=== PATIENT | male | born 1960 | race Hispanic/Latino ===

== ENCOUNTER 2018-11-25 10:03 | Day surgery (SDC) | payer MEDICARE ==
[2018-11-24 08:57] VITALS: BP 106/63
[2018-11-25] VITALS (10 sets, daily range): BP systolic 96–116; BP diastolic 56–68
[~2018-11-25] VITALS: Ht 170.2 cm; Wt 68.1 kg
[~2018-11-25 10:03] MED LIST: CART5DRO OP; ERGO500014 PO; FAMO40TA7 PO; LATA7.5D OP; LISI-613 PO; METF500S7 PO; SIMV40TA5 PO; TYL3 PO
--- NOTE | 2018-11-25 10:25 | NUR ---
PATIENT ARRIVED TO DAY SURGERY WITH FAMILY AT HIS SIDE, PATIENT ALERT TO NAME ONLY. SIDE RAILS UP X2 FOR PATIENTS SAFETY, FAMILY ENCOURAGED TO CALL FOR ASSISTANCE IF NEEDED. PATIENT AND FAMILY AGREED TO CALL IF NEEDED. PATIENT HAS A NEPHROSTOMY TUBE TO RIGHT SIDE SIZE 8 FR. DRESSING IS CLEAN AND DRY TO RIGHT LOWER BACK.
--- NOTE | 2018-11-25 12:55 | NUR ---
updated family and patient of delay start time, family and patient verbalized understanding
[2018-11-25] MEDS ORDERED: IODIXANOL 320 MG/ML 100 ML VIAL ONE (15:16)
[2018-11-25] MEDS ORDERED: PROPOFOL 10 MG/ML 20ML VIAL IV ONE (15:20)
[2018-11-25] MEDS ORDERED: LIDOCAINE HCL MPF 1% 5ML VIAL ONE (15:21)
[2018-11-25] MEDS ORDERED: FENTANYL CITRATE PF 50 MCG/1 ML 2ML VIAL ONE (15:31)
[2018-11-25] MEDS ORDERED: SUCCINYLCHOLINE CHLORIDE 20 MG/ML 10 ML VIAL ONE (15:32)
[2018-11-25] MEDS ORDERED: LIDOCAINE HCL 1% MDV 50ML VIAL ONE (15:33)
[2018-11-25] MEDS ORDERED: PHENYLEPHRINE HCL 10 MG/ML 1ML VIAL IV ONE (15:47)
== END 2018-11-25 18:00 | disposition home or self-care (01) ==
LOC: DAH 10:03
PROVIDERS: ATTEND Internal Medicine Hematology & Oncology
DX: N13.9 Obstructive and reflux uropathy, unspecified (principal); E11.9 Type 2 diabetes mellitus without complications; C79.01 Secondary malignant neoplasm of right kidney and renal pelvis; C80.1 Malignant (primary) neoplasm, unspecified; Z98.890 Other specified postprocedural states; E78.5 Hyperlipidemia, unspecified; I10 Essential (primary) hypertension; Z85.528 Personal history of other malignant neoplasm of kidney; K21.9 Gastro-esophageal reflux disease without esophagitis; D64.9 Anemia, unspecified; Z79.899 Other long term (current) drug therapy; Z79.84 Long term (current) use of oral hypoglycemic drugs
CPT/HCPCS: 50431; J0330; J1644; J2370; J2704; J3010; J3490 ×2; Q9967

== ENCOUNTER → 2019-01-19 | Outpatient (CLI) | payer MEDICARE | END | disposition home or self-care (01) | LOC: RAH 09:48 | PROVIDERS: ATTEND Internal Medicine Hematology & Oncology | DX: C64.1 Malignant neoplasm of right kidney, except renal pelvis (principal); M17.11 Unilateral primary osteoarthritis, right knee; M16.11 Unilateral primary osteoarthritis, right hip; N32.89 Other specified disorders of bladder | CPT/HCPCS: 73552; 73560; 78306; A9503 ==

== ENCOUNTER 2019-04-21 22:10 | Inpatient (IN) | payer MEDICARE ==
[~2019-04-21] VITALS: Ht 165.1 cm; Wt 52.2 kg
[2019-04-21 23:22] LABS: BASOPHILS % (AUTO) 0.6 % (0.0-5.0); EOSINOPHILS % (AUTO) 0.3 % (0.0-8.0); HEMATOCRIT 24.7 % (42-54); LYMPHOCYTES % (AUTO) 8.9 % (21.0-51.0); MEAN CORPUSCULAR HEMOGLOBIN 27.3 pg (27.0-33.0); MEAN CORPUSCULAR HGB CONC 31.2 g/dL (32.0-36.0); MEAN CORPUSCULAR VOLUME 87.5 fL (79-99); MONOCYTES % (AUTO) 6.5 % (3.0-13.0); NEUTROPHILS % (AUTO) 83.7 % (40.0-77.0); PLATELET COUNT (AUTO) 367 K/uL (130-400); RED BLOOD CELL COUNT(AUTO) 2.82 MIL/uL (4.50-6.20); WHITE BLOOD COUNT (AUTO) 8.8 K/uL (4.8-10.8)
[2019-04-21 23:33] LABS: CREATININE 0.7 mg/dL (0.5-1.5)
[2019-04-21 23:35] LABS: INR 1.03 (0.85-1.15); PARTIAL THROMBOPLASTIN TIME 34.2 SEC (26.3-35.5); PROTHROMBIN TIME 10.8 SEC (9.6-11.6)
[2019-04-21 23:42] LABS: BILIRUBIN,TOTAL 0.8 mg/dL (0.2-1.0); TOTAL PROTEIN, SERUM 6.9 g/dL (6.0-8.3)
[2019-04-21 23:51] LABS: B-TYPE NATRIURETIC PEPTIDE 264 pg/mL (0-100)
[2019-04-22] MEDS ORDERED: SODIUM CHLORIDE 0.9% 500ML 500 ML IV ONE ×2 (00:03→03:38)
[2019-04-22] MEDS ORDERED: SODIUM CHLORIDE 0.9% 1000ML 1,000 ML IV ONE ×2 (00:04→00:34)
[2019-04-22 00:39] LABS: APPEARANCE,URINE Clear (CLEAR); BILIRUBIN,URINE Small (NEGATIVE); COLOR,URINE Dark Yellow (YELLOW); GLUCOSE, URINE (UA) Negative (NEGATIVE); KETONES,URINE Negative (NEGATIVE); LEUKOCYTE ESTERASE ,URINE Negative (NEGATIVE); NITRATE,URINE Negative (NEGATIVE); OCCULT BLOOD,URINE Negative (NEGATIVE); PROTEIN,URINE Trace mg/dL (NEGATIVE)
[2019-04-22 01:00] LABS: BACTERIA,URINE Few /HPF (None Seen); MUCUS,URINE Rare LPF (None Seen); RBC,URINE 0-1 /HPF (0-1); SQUAMOUS EPITHELIAL CELL,UR 0-2 /HPF (0-2); WBC,URINE 0-1 /HPF (0-1)
[2019-04-22] MEDS ORDERED: CEFTRIAXONE SODIUM 1 GM ONE (01:24)
[2019-04-22] MEDS ORDERED: SODIUM CHLORIDE 0.9% 100 ML IV ONE (01:25)
[2019-04-22] MEDS: CEFTRIAXONE SODIUM 1 GM IVP SCH (02:00)
[2019-04-22] MEDS ORDERED: AZITHROMYCIN 500 MG in SODIUM CHLORIDE 0.9% 250 ML IV SCH (02:00)
[2019-04-22] MEDS ORDERED: ONDANSETRON HCL 4 MG/2 ML VIAL IVP PRN (02:00)
[2019-04-22] MEDS ORDERED: ACETAMINOPHEN 325 MG TAB PO PRN (02:00)
[2019-04-22] MEDS ORDERED: AZITHROMYCIN 500MG+NS 250ML 250 ML IV ONE (02:38)
[2019-04-22 03:10] VITALS: BP 101/63
[2019-04-22 08:00] VITALS: BP 99/59
[2019-04-22 08:53] VITALS: BP 105/66
[2019-04-22 09:16] LABS: HEMATOCRIT 26.4 % (42-54); MEAN CORPUSCULAR HEMOGLOBIN 28.8 pg (27.0-33.0); MEAN CORPUSCULAR HGB CONC 32.4 g/dL (32.0-36.0); MEAN CORPUSCULAR VOLUME 88.9 fL (79-99); NUCLEATED RED BLOOD CELLS 0.1 % (0.0-0.19); PLATELET COUNT (AUTO) 301 K/uL (130-400); RED BLOOD CELL COUNT(AUTO) 2.97 MIL/uL (4.50-6.20); RED CELL DISTRIBUTION WIDTH 16.2 % (11.0-15.5); WHITE BLOOD COUNT (AUTO) 7.2 K/uL (4.8-10.8)
[2019-04-22] MEDS ORDERED: DOCU100C33 PO (11:35)
[2019-04-22] MEDS ORDERED: FENT-77 TD (11:35)
[2019-04-22] MEDS ORDERED: METF-444 PO (11:35)
[2019-04-22] MEDS ORDERED: FAMO40TA7 PO (11:35)
[2019-04-22] MEDS ORDERED: MEGE400O4 PO (11:35)
[2019-04-22] MEDS ORDERED: ERGO500014 PO (11:35)
[2019-04-22] MEDS ORDERED: LATA7.5D OU (11:35)
[2019-04-22] MEDS ORDERED: ONDA8TAB11 PO (11:35)
[2019-04-22] MEDS ORDERED: PAZO200T PO (11:35)
[2019-04-22] MEDS ORDERED: CART5DRO OU (11:35)
[2019-04-22] MEDS ORDERED: MORPHINE PO (11:35)
[2019-04-22 11:59] VITALS: BP 97/62
[2019-04-22] MEDS: SODIUM CHLORIDE 0.9% 1000ML 1,000 ML IV SCH ×2 (12:00→21:41)
[2019-04-22] MEDS ORDERED: MORPHINE SULFATE 2 MG/ML 1ML SYG IVP PRN (12:00)
[2019-04-22] MEDS: FENTANYL 25 MCG/HR PATCH TD SCH (12:15)
[2019-04-22] MEDS ORDERED: ONDANSETRON ODT 4 MG TAB PO PRN (12:15)
[2019-04-22] MEDS ORDERED: MORPHINE SULFATE 20MG/ML ORAL 0.25 ML PO PRN (12:15)
[2019-04-22] MEDS: IPRATROPIUM/ALBUTEROL SULFATE 3 ML SOLUTION IH SCH ×3 (13:46→22:17)
[2019-04-22] MEDS ORDERED: SODIUM CHLORIDE 0.9% 250 ML IV ONE (14:31)
--- NOTE | 2019-04-22 15:00 | NUR ---
INITIAL MET w pt and sister fanny at bedside pt is very letharigic, hard to rouse; sister provides information. Patient lives with sister who will provide transport home- he has hospital bed, wkr, angelar, wears a fentynyl patch and has morphine pills. pt has dx of kidney cancer with mets no hh/provider. dcp is home,EMS may be required, hard to tell from this interview.CM to follow Addendum: 04/22/19 at 1842 by DELMIS RICH RN CM Amended: Links added.
[2019-04-22 16:00] VITALS: BP 106/65
[2019-04-22] MEDS: METFORMIN HCL 500 MG TABLET PO SCH (17:13)
[2019-04-22 20:00] VITALS: BP 99/62
[2019-04-22] MEDS: CARTEOLOL HCL OU SCH (21:00)
[2019-04-22] MEDS: LATANOPROST 2.5 ML DROPS OU SCH (21:00)
[2019-04-22] MEDS: FAMOTIDINE 20MG TAB 20 MG TAB PO SCH (21:38)
[2019-04-22] MEDS: DOCUSATE SODIUM 100 MG CAP PO SCH (21:38)
[2019-04-23] VITALS: BP 102/63
[2019-04-23] MEDS: CEFTRIAXONE SODIUM 1 GM IVP SCH (02:01)
[2019-04-23] MEDS: IPRATROPIUM/ALBUTEROL SULFATE 3 ML SOLUTION IH SCH ×6 (02:05→21:16)
[2019-04-23 04:00] VITALS: BP 104/66
[2019-04-23 04:28] LABS: BASOPHILS % (AUTO) 0.1 % (0.0-5.0); EOSINOPHILS % (AUTO) 0.4 % (0.0-8.0); HEMATOCRIT 27.7 % (42-54); LYMPHOCYTES % (AUTO) 8.5 % (21.0-51.0); MEAN CORPUSCULAR HEMOGLOBIN 29.5 pg (27.0-33.0); MEAN CORPUSCULAR HGB CONC 33.2 g/dL (32.0-36.0); MONOCYTES % (AUTO) 5.9 % (3.0-13.0); NEUTROPHILS % (AUTO) 85.1 % (40.0-77.0); PLATELET COUNT (AUTO) 262 K/uL (130-400); RED BLOOD CELL COUNT(AUTO) 3.12 MIL/uL (4.50-6.20); RED CELL DISTRIBUTION WIDTH 16.2 % (11.0-15.5); WHITE BLOOD COUNT (AUTO) 7.5 K/uL (4.8-10.8)
[2019-04-23 04:46] LABS: ALBUMIN 1.7 g/dL (3.5-5.0); BILIRUBIN,TOTAL 0.4 mg/dL (0.2-1.0); CREATININE 0.6 mg/dL (0.5-1.5); POTASSIUM 3.9 mmol/L (3.5-5.1); TOTAL PROTEIN, SERUM 5.8 g/dL (6.0-8.3)
[2019-04-23] MEDS: SODIUM CHLORIDE 0.9% 1000ML 1,000 ML IV SCH ×2 (07:43→18:06)
[2019-04-23 08:00] VITALS: BP 106/65
[2019-04-23] MEDS: METFORMIN HCL 500 MG TABLET PO SCH ×2 (08:00→17:05)
[2019-04-23] MEDS: PAZOPANIB HCL 800 MG PO SCH (09:00)
[2019-04-23] MEDS: CARTEOLOL HCL OU SCH ×2 (09:00→21:00)
[2019-04-23] MEDS: AZITHROMYCIN 500MG+NS 250ML 250 ML IV SCH (09:33)
[2019-04-23] MEDS: MEGESTROL 400 MG/10 ML UDCUP PO SCH (09:35)
[2019-04-23] MEDS: DOCUSATE SODIUM 100 MG CAP PO SCH ×2 (09:35→21:31)
[2019-04-23] MEDS: FENTANYL 25 MCG/HR PATCH TD SCH (11:30)
[2019-04-23 12:00] VITALS: BP 93/59
[2019-04-23 16:00] VITALS: BP 89/58
--- NOTE | 2019-04-23 17:14 | NUR ---
HOME O2 CM spoke to pts brother named Zac regarding home o2 needs. States he signs consent for pt. Reports plan is to home and declined rehab at this time. CM to fax referral and f/u.
[2019-04-23 19:22] VITALS: BP 91/55
[2019-04-23] MEDS: LATANOPROST 2.5 ML DROPS OU SCH (21:00)
[2019-04-23] MEDS: FAMOTIDINE 20MG TAB 20 MG TAB PO SCH (21:31)
[2019-04-24 00:05] VITALS: BP 99/59
[2019-04-24] MEDS: IPRATROPIUM/ALBUTEROL SULFATE 3 ML SOLUTION IH SCH ×6 (01:08→21:12)
[2019-04-24] MEDS: CEFTRIAXONE SODIUM 1 GM IVP SCH (01:50)
[2019-04-24] MEDS: SODIUM CHLORIDE 0.9% 1000ML 1,000 ML IV SCH (03:45)
[2019-04-24 04:18] VITALS: BP 105/61
[2019-04-24 07:33] VITALS: BP 104/70
[2019-04-24] MEDS ORDERED: LACTULOSE 20 GM/30 ML UDCUP ONE (08:38)
[2019-04-24] MEDS: METFORMIN HCL 500 MG TABLET PO SCH ×2 (08:52→16:32)
[2019-04-24] MEDS: AZITHROMYCIN 500MG+NS 250ML 250 ML IV SCH (08:52)
[2019-04-24] MEDS: MEGESTROL 400 MG/10 ML UDCUP PO SCH (08:52)
[2019-04-24] MEDS: DOCUSATE SODIUM 100 MG CAP PO SCH ×2 (08:52→20:25)
[2019-04-24] MEDS: PAZOPANIB HCL 800 MG PO SCH (09:00)
[2019-04-24 11:00] VITALS: BP 95/65
[2019-04-24] MEDS: CARTEOLOL HCL OU SCH ×2 (13:44→20:32)
--- NOTE | 2019-04-24 14:27 | NUR ---
O2 follow-up Bob faxed back form for MD to sign. Dr. Trejo already made rounds. Charge nurse aware and has placed call to Dr. Trejo to ask for MD to come back to sign order. CM to continue to follow. CD Addendum: 04/24/19 at 1428 by STEPHANIE CUELLO CM Amended: Links added.
[2019-04-24 16:00] VITALS: BP 107/67
--- NOTE | 2019-04-24 17:18 | NUR ---
O2 Follow-Up/IM Letter Dr. Trejo came in to sign O2 Form. Faxed back to [facility]/ confirmation received. Informed patient and family if O2 is delivered, patient will be able to dc. Discussed IM Letter and family signed. CD
[2019-04-24 19:10] VITALS: BP 105/65
[2019-04-24] MEDS: FAMOTIDINE 20MG TAB 20 MG TAB PO SCH (20:25)
[2019-04-24] MEDS: LATANOPROST 2.5 ML DROPS OU SCH (20:33)
[2019-04-25 00:08] VITALS: BP 106/68
[2019-04-25] MEDS: CEFTRIAXONE SODIUM 1 GM IVP SCH (02:05)
--- NOTE | 2019-04-25 02:07 | NUR ---
PATIENT CARE PATIENT'S SISTER STATES VITAS ARE NOT BEING ASSESSED CORRECTLY AND PATIENT HAS A LOW GRADE TEMP OF 99.1. PATIENT'S SISTER ADMINISTERING TYLENOL AND MORPHINE SHE SEEMS NECESSARY FROM PATIENT'S HOME MEDICATIONS. PATIENT'S SISTER DID THE PATIENT'S BED BATH, REFUSED FOR THE CUSTOM GARMENT DESIGNER TO DO IT, INSISTING THAT SHE WOULD DO IT HERSELF.
[2019-04-25] MEDS: IPRATROPIUM/ALBUTEROL SULFATE 3 ML SOLUTION IH SCH ×3 (02:15→10:22)
[2019-04-25 04:15] VITALS: BP 102/67
[2019-04-25 07:30] VITALS: BP 99/61
[2019-04-25] MEDS: DOCUSATE SODIUM 100 MG CAP PO SCH (09:00)
[2019-04-25] MEDS: CARTEOLOL HCL OU SCH (09:00)
[2019-04-25] MEDS: PAZOPANIB HCL 800 MG PO SCH (09:00)
[2019-04-25] MEDS: SODIUM CHLORIDE 0.9% 1000ML 1,000 ML IV SCH (09:17)
--- NOTE | 2019-04-25 09:18 | NUR ---
NORMAL SALINE Intravenous fluids bag with 600mL left to count. Intravenous site at right hand # 20g healthy and patent.
[2019-04-25] MEDS: AZITHROMYCIN 500MG+NS 250ML 250 ML IV SCH (09:24)
[2019-04-25] MEDS: METFORMIN HCL 500 MG TABLET PO SCH (09:24)
[2019-04-25] MEDS: MEGESTROL 400 MG/10 ML UDCUP PO SCH (09:24)
[2019-04-25 11:00] VITALS: BP 97/59
[2019-04-29] MEDS ORDERED: ERGOCALCIFEROL (VITAMIN D2) 50,000 UNIT CAPSULE PO SCH (09:00)
== END 2019-04-25 14:00 | disposition home or self-care (01) | DRG 871 ==
LOC: EDH 22:10 → EDHIP 04-22 01:21 → 3AH 04-22 02:05
PROVIDERS: ADMIT Internal Medicine Hematology & Oncology; ATTEND Internal Medicine Hematology & Oncology
PROC: 30233N1 Transfusion of Nonautologous Red Blood Cells into Peripheral Vein, Percutaneous Approach (ICD-10-PCS; principal; 2019-04-21)
DX: A41.9 Sepsis, unspecified organism (principal); J18.1 Lobar pneumonia, unspecified organism; C64.9 Malignant neoplasm of unspecified kidney, except renal pelvis; C78.00 Secondary malignant neoplasm of unspecified lung; C79.51 Secondary malignant neoplasm of bone; D64.9 Anemia, unspecified; E11.9 Type 2 diabetes mellitus without complications; E78.5 Hyperlipidemia, unspecified; F79 Unspecified intellectual disabilities; I10 Essential (primary) hypertension; K59.00 Constipation, unspecified; Z92.21 Personal history of antineoplastic chemotherapy
CPT/HCPCS: 36415; 36430; 71045; 80053; 81001; 82948; 83605; 83690; 83880; 84484; 85025; 85027; 85610; 85730; 86850; 86900; 86901; 86922; 87040; 87088; 93005; 94640; 94664; 94760; G0378; J0456; J0696; J7030; J7040; P9016